=== PATIENT | female | born 1945 | race Caucasian/White ===

== ENCOUNTER 2016-03-27 10:21 | Emergency (ER) | payer MEDICARE, BC ==
[2015-08-22 09:16] VITALS: BMI 23.4
[~2016-03-27 10:21] MED LIST: ALENDRONATE SOD40 MG PO; ASPIRIN 81 MG E81 MG PO; ATENOLOL25 MG PO; BAYER CHEWABLE81 MG PO; EDARBI40 MG PO; HYDROCODONE-APA1 TAB PO; LIPITOR40 MG PO; NEXIUM20 MG PO; PLAVIX75 MG PO; TENORMIN25 MG PO; ULTRAM50 MG PO; VITAMIN D2000 UNIT PO
[2016-03-27 11:11] LABS: APPEARANCE HAZY (CLEAR); COLOR YELLOW (YELLOW); LEUKOCYTE ESTERASE TRACE (NEGATIVE); SPECIFIC GRAVITY 1.015 (1.005-1.020)
[2016-03-27 11:12] LABS: BILIRUBIN NEGATIVE (NEGATIVE); GLUCOSE NEGATIVE (NEGATIVE); KETONE NEGATIVE (NEGATIVE); NITRITE POSITIVE (NEGATIVE); PROTEIN NEGATIVE (NEGATIVE); UROBILINOGEN NORMAL (NORMAL)
[2016-03-27 11:14] LABS: BACTERIA MODERATE /hpf (NONE SEEN); RED CELLS - URINE 0-5 /hpf (0-5)
== END 2016-03-27 11:44 | disposition home or self-care (01) ==
LOC: D.ER 10:21
PROVIDERS: Nurse Practitioner Acute Care
DX: N30.00 Acute cystitis without hematuria (principal); I10 Essential (primary) hypertension; F17.200 Nicotine dependence, unspecified, uncomplicated

== ENCOUNTER 2016-04-12 12:24 | Observation (INO) | payer MEDICARE, BC ==
[~2016-04-12] VITALS: Ht 152.4 cm; Wt 45.9 kg
[2016-04-12 13:23] LABS: BASOPHILS 0.4 % (0.0-2.0); HEMATOCRIT 41.1 % (36.0-48.0); HEMOGLOBIN 14.1 g/dL (12-16); IMMATURE GRANULOCYTES 0.5 % (0-5); LYMPHOCYTES 19.2 % (15-50); MCH 29.6 pg (26.0-34.0); MCHC 34.3 g/dL (31.0-37.0); MCV 86.3 fL (80.0-100.0); MEAN PLATELET VOLUME 9.1 fL (7.4-10.4); MONOCYTES 10.2 % (2-11); NEUTROPHILS 68.7 % (40-80); PLATELET COUNT 333 10x3/uL (130-400); RBC 4.76 10x6/uL (4.00-5.40); RDW 16.2 % (11.5-14.5); WBC 9.3 10x3/uL (4.8-10.8)
[2016-04-12 13:39] LABS: ALBUMIN 3.5 g/dL (3.4-5.0); ALKALINE PHOSPHATASE 74 U/L (46-116); ALT (SGPT) 25 U/L (10-68); BILIRUBIN - TOTAL 0.38 mg/dL (0.2-1.3); CALC OSMOLALITY 277 mosm/kg (275-300); CARBON DIOXIDE 27.4 mmol/L (21.0-32.0); CHLORIDE - SERUM 101 mmol/L (98-107); CREATININE - SERUM 1.2 mg/dL (0.6-1.3); GLUCOSE 85 mg/dL (74-106); POTASSIUM - SERUM 4.1 mmol/L (3.5-5.1); PROTEIN - SERUM 7.4 g/dL (6.4-8.2); SODIUM 136 mmol/L (136-145); UREA NITROGEN 33 mg/dL (7-18); eGFR NON AFRICAN AMERICAN 47 mL/min (90-120)
[2016-04-12 13:45] LABS: AMYLASE - SERUM 111 U/L (25-115); CREATINE KINASE 45 UL (21-215); LIPASE 507 U/L (73-393); PRO BNP 532 pg/mL (0-125); TROPONIN-I < 0.017 ng/mL (0.000-0.060)
--- NOTE | 2016-04-12 15:46 | NUR ---
RECIEVED FROM ER. DENIES ANY CHEST DISCOMFORT. STILL NAUSATED. IV TO LEFT AC TELEMERTY SHOWS SR. WILL MONITOR
[2016-04-12 15:59] VITALS: BP 118/62; Ht 152.4 cm; Wt 45.9 kg
--- NOTE | 2016-04-12 16:22 | NUR ---
ASSESSMENT COMPLETE. PATIENT IS WANTING MORE ZOFRAN FOR NAUSEA. CALLED TO ER AND SPOKE WITH MARYCARMEN WHO SAID THAT SHE GAVE HER A DOSE AT 1319. I EXPLAINED TO THE PATIENT THAT IT WAS EVERY 4 HOURS AND WE CAN GIVE HER SOME MORE AT 520 PM. SHE REPLIED, "WELL SHIT, I MIGHT WELL GO HOME AND TAKE MY OWN ZOFRAN CAUSE I TAKE IT WHEN I NEED IT". I APOLIGIZED AND AGAIN TOLD HER THAT I COULD NOT GIVE IT TO HER AT THIS TIME. SHE REPLIED, " WELL I AM SO SICK AND NO ONE CAN FIND OUT WHY". I ENCOURAGED HER TO STAY SHE WANTED TO LEAVE AND TO GIVE US 24 HOURS TO TRY AND GET HER FEELING BETTER AND MAYBE SOME ANSWERS FOR HER. SHE REPORTS NO GI WORKUP FOR SEVERAL YEARS. WILL CONTINUE TO MONITOR.
--- NOTE | 2016-04-12 17:33 | NUR ---
LYING QUIETLY. C/O BEING NAUSATED WHILE CONTINING TO DRINK HER SHAKE. TELEMERTY SHOWS SR
[2016-04-12 20:51] VITALS: BP 119/62
--- NOTE | 2016-04-12 22:16 | NUR ---
INIITAL ROUNDS COMPLETED AT 1914 HRS. PT DENIED ANY N/V. ASSESSMETN COMPETED AT 1954 HRS. PT REFUSES IV FLUIDS. SR PER CM HR 71. VSS. IV TO LAC SL. LUNGS CTA. HEART TONES S1 S2. PT UP AD MATTIE. REFUSES SCD'S. PT REFUSES 2200 EKG. PT CURRENTLY PLAYING ON PHONE. WILL CONTINUE TO MONITOR. SR UP X2, CALL LIGHT WITHIN REACH.
[2016-04-13 00:30] VITALS: BP 110/55
--- NOTE | 2016-04-13 00:30 | NUR ---
PT RESTING WITH EYES CLOSED. RESP EVEN AND REGULAR. SR UP X2, CALL LIGHT WITHIN REACH.
--- NOTE | 2016-04-13 02:50 | NUR ---
PT RESTING WITH EYES CLOSED. RESP EVEN AND REGULAR. SR UP X2, CALL LIGHT WITHIN REACH.
[2016-04-13 04:30] VITALS: BP 124/61
--- NOTE | 2016-04-13 04:33 | NUR ---
PT RESTING WITH EYES CLOSED. RESP EVEN AND REGULAR. SR UP X2, CALL LIGHT WITHIN REACH.
[2016-04-13 06:02] LABS: ALBUMIN 3.1 g/dL (3.4-5.0); BILIRUBIN - DIRECT 0.09 mg/dL (0.00-0.30); BILIRUBIN - INDIRECT 0.37 mg/dL (0.00-1.00); BILIRUBIN - TOTAL 0.46 mg/dL (0.2-1.3); CALCIUM 8.9 mg/dL (8.5-10.1); CARBON DIOXIDE 27.7 mmol/L (21.0-32.0); CREATININE - SERUM 1.1 mg/dL (0.6-1.3); MAGNESIUM - SERUM 2.1 mg/dL (1.8-2.4); PHOSPHOROUS 3.5 mg/dL (2.5-4.9); PROTEIN - SERUM 6.7 g/dL (6.4-8.2)
[2016-04-13 06:03] LABS: ANION GAP 12.2 mmol/L (8-16); POTASSIUM - SERUM 4.9 mmol/L (3.5-5.1)
--- NOTE | 2016-04-13 06:11 | NUR ---
VSS THROUGHOUT NIGHT. SR PER CM. PT DENIED ANY DISCOMFORT. NEEDS MET; WILL CONTINUE TO MONITOR.
[2016-04-13 08:28] VITALS: BP 148/83
--- NOTE | 2016-04-13 09:20 | NUR ---
ALERT AND ORIENTED X4. DENIES PAIN OR SOB. DEMANDING TELEMETRY TO BE TAKEN OFF. DEMANDING DOCTOR TO BE CALLED FOR DISCHARGE. ENCOURAGE TO STAY UNTIL CT TEST COMPLETE. PATIENT STATES, "I WILL STAY UNTIL TEST IS OVER BUT THEN I WILL CALL THAT ASSHOLE AND GIVE TWO OPTIONS; GET MY PAPERS READY TO LEAVE OR I'M LEAVING ANYWAY." NOTIFY OF PATIENT'S STATEMENT. CONTINUE PLAN OF CARE. BED LOCKED AND LOW. CALL LIGHT IN REACH.
--- NOTE | 2016-04-13 11:00 | NUR ---
ALERT AND ORIENTED X4. RETURN TO ROOM FROM CT. DEMANDING DISCHARGE PAPERS AND IV OUT. CARDIOLOGY SIGN OFF. CT REPORT REQUESTED VERBALLY PER BEFORE OK TO DISCHARGE. CONTINUE PLAN OF CARE. CONTINUE SAFETY PRECAUTIONS.
[2016-04-13] MEDS ORDERED: FLAGYL500 MG PO (11:44)
[2016-04-13] MEDS ORDERED: PROTONIX40 MG PO (11:45)
--- NOTE | 2016-04-13 11:47 | HP ---
PATIENT: ROSINA CONKLIN MEDICAL RECORD: [id number] ACCOUNT: [id number] LOCATION:[address] : 46 ADMISSION DATE: 04/12/16 HISTORY AND PHYSICAL EXAMINATION HISTORY OF PRESENT ILLNESS: A 71-year-old female, who presented to the Emergency Room with 2 weeks of episodic nausea and vomiting, worst tonight, unknown etiology. PAST MEDICAL HISTORY: Significant for nicotine dependence SOCIAL HISTORY: Current everyday smoker, 1 pack per day, smoked since the age of 17. . Denies alcohol. FAMILY HISTORY: Significant for Alzheimer disease, breast cancer. PAST SURGICAL HISTORY: Breast biopsy times 2, multiple heart catheterizations and stent placement, left and right legs, three total. Hysterectomy, cholecystectomy, additional multiple stents in the left leg, chronic back pain, hypertension. CURRENT MEDICATIONS: Albuterol inhaler, Plavix 75 mg daily, edarbi 80 mg daily, Phenergan 25 mg daily tablet p.r.n. nausea, tramadol p.r.n. pain, OTC vitamin D, zolpidem 5 mg q.h.s. p.r.n. insomnia, calcium with vitamin D. ALLERGIES: No known drug allergies. REVIEW OF SYSTEMS: GENERAL: No known change in weight or appetite changes with the above symptoms. HEENT: No cephalgia, visual changes, tinnitus, epistaxis or dysphagia. CARDIOVASCULAR: Denies present chest pain, denies dyspnea on exertion. GASTROINTESTINAL: Denies hematemesis, hematochezia or melena. Reports normal bowel movements. Does admit nausea and vomiting for the past several weeks. GENITOURINARY: Denies dysuria, denies change in frequency. MUSCULOSKELETAL: No acute changes, does have a history of chronic back pain. ENDOCRINE: Denies polyuria, polydipsia, or polyphagia. PHYSICAL EXAMINATION: VITAL SIGNS: Temperature 98.2, blood pressure is 118/62, heart rate 67, respirations 18, O2 sats 97% on room air. HEENT: Normocephalic and atraumatic. Eyes: Pupils are equally round and reactive to light and accommodation. Extraocular muscles are intact. Conjunctivae not injected. Ears: Canals patent. TMs are intact. Nose: Nares patent without drainage. Throat: No erythema, no exudates. HEART: Regular rate and rhythm. No S3 or S4, no rub. LUNGS: Clear to auscultation bilaterally. Breathing is nonlabored. ABDOMEN: Soft, nontender at this time. EXTREMITIES: Present times 4. No edema. NEUROLOGIC: Intact. SKIN: Warm, dry. No rash. LABORATORY DATA: Troponin is less than 0.017 times 3. CBC: White count 9.3, hemoglobin 14.1, hematocrit 41.1, platelets 333. Chemistry shows sodium of 136, potassium 4.1, chloride 101, bicarbonate 27.4, BUN 33, creatinine 1.2. Amylase is normal at 111. Lipase is slightly elevated at 507. HISTORY AND PHYSICAL [id number] ROSINA CONKLIN DIAGNOSTIC DATA: EKG shows normal sinus rhythm with a rate of 65, nonspecific ST changes with some ST elevation in V3, V4, V5. ASSESSMENT AND PLAN: 1. Persistent nausea and vomiting for the past 2 weeks. Elevated lipase. We will monitor, n.p.o. tonight, IV hydration. We will obtain CT abdomen and pelvis with IV and oral contrast. 2. Slightly abnormal EKG. Cardiology following. Cardiac enzymes negative multiple times. 3. Nicotine dependence. Counseled on smoking cessation. We will also provide antiemetics, PPI IV Protonix and supportive care. TRANSINT:[id number] Voice Confirmation ID: [id number] DOCUMENT ID: [id number] OSWALDO LARIOS DO at 1147 CC: [id number] DICTATION DATE: 04/12/162004 PROFILER: 04/12/16 2208 ADM IN [facility] [address] [place] [address]
[2016-04-13 12:42] VITALS: BP 139/79
--- NOTE | 2016-04-13 13:00 | NUR ---
ALERT AND ORIENTED X4. PULLED OUT IV, TIP INTACT. DISCHARGE NURSE PROVIDES DISCHARGE INSTRUCTIONS VERBALLY AND WRITTEN. ESCORT TO RIDE VIA WHEELCHAIR. REMAINS FREE FROM INJURY.
--- NOTE | 2016-04-13 13:15 | DS ---
PATIENT:ROSINA CONKLIN :47 MEDICAL RECORD: [id number] DISCHARGE SUMMARY ADMISSION DATE: 04/12/16 DISCHARGE DATE: A 71-year-old female. DATE OF ADMISSION: 04/12/2016 DATE OF DISCHARGE: 04/13/2016 ADMISSION DIAGNOSES: Nausea and vomiting, epigastric and upper abdominal pain radiating to her chest, cardiovascular disease with stent placements in July 2015, nicotine dependence. DISCHARGE DIAGNOSES: Acute colitis, epigastric and upper abdominal pain, hypertension, nicotine dependence. CONSULTS: Dr. Abdullahi, cardiology. PROCEDURE: CT abdomen showed possible early colitis. HOSPITAL COURSE: The patient was admitted to the ER with reported 2 weeks, nausea and vomiting and epigastric pain. With her cardiac history, EKG was obtained which showed some nonspecific ST changes, some ST elevation in V3, V4. Cardiology, Dr. Abdullahi, evaluated the patient cycled enzymes, which remained negative. None of her previous cardiac symptoms were present. Deemed noncardiac with her abdominal pain and nausea and vomiting. CT with contrast was obtained, showed likely early colitis. The patient is adamant about going home. She was discharged to home in stable and improved condition. She does agree on metronidazole 500 mg p.o. t.i.d. She understands not to drink any alcohol while taking this medicine, was also counseled on smoking cessation. We will follow up with Dr. Zaman in 10 days. She has seen Dr. Muñiz in the past. She will call him for an evaluation as well. She was also started on Protonix 40 mg p.o. daily. The patient is adamant about going home, is discharged in stable condition. TRANSINT:[id number] Voice Confirmation ID: [id number] DOCUMENT ID: [id number] OSWALDO LARIOS DO at 1315 CC: [id number] DICTATION DATE: 04/13/16 1152 GOVERNMENT SERVICES PROFESSIONAL: 04/13/16 1231 ADM IN [facility] [id number] [place] [address]
== END 2016-04-13 14:02 | disposition home or self-care (01) ==
LOC: D.ER 12:24 → D.M2 14:10 → OBSVTIME 14:10 → D.M2 04-13 14:02
PROVIDERS: Family Medicine; ADMIT Family Medicine
DX: K52.9 Noninfective gastroenteritis and colitis, unspecified (principal); I25.10 Atherosclerotic heart disease of native coronary artery without angina pectoris; Z95.5 Presence of coronary angioplasty implant and graft; I10 Essential (primary) hypertension; F17.200 Nicotine dependence, unspecified, uncomplicated

== ENCOUNTER → 2016-05-07 14:24 | Outpatient (CLI) | payer MEDICARE, BC ==
[2016-04-12 15:59] VITALS: BMI 21.5
[~2016-05-07 14:24] MED LIST changes: +FLAGYL500 MG PO; +PROTONIX40 MG PO; +TENORMIN50 MG PO
== END | disposition home or self-care (01) ==
LOC: D.CT 14:24
DX: I65.29 Occlusion and stenosis of unspecified carotid artery (principal)

== ENCOUNTER 2016-05-11 14:41 | Observation (INO) | payer MEDICARE, BC ==
[~2016-05-11] VITALS: Ht 152.4 cm; Wt 49.2 kg
[~2016-05-11 14:41] MED LIST changes: -TENORMIN50 MG PO
[2016-05-11 15:43] LABS: BASOPHILS 0.2 % (0.0-2.0); EOSINOPHILS 0 % (0-7); HEMATOCRIT 39.1 % (36.0-48.0); HEMOGLOBIN 13.1 g/dL (12-16); IMMATURE GRANULOCYTES 0.4 % (0-5); LYMPHOCYTES 5.4 % (15-50); MCHC 33.5 g/dL (31.0-37.0); MCV 89.5 fL (80.0-100.0); MEAN PLATELET VOLUME 8.9 fL (7.4-10.4); MONOCYTES 4.4 % (2-11); NEUTROPHILS 89.6 % (40-80); RBC 4.37 10x6/uL (4.00-5.40); RDW 15.8 % (11.5-14.5)
[2016-05-11 15:49] LABS: PLATELET COUNT 258 10x3/uL (130-400)
[2016-05-11 15:54] LABS: APTT 30.5 SECONDS (22.8-39.4); INR 0.99 (0.85-1.17)
[2016-05-11 16:24] LABS: ALBUMIN 3.5 g/dL (3.4-5.0); ALKALINE PHOSPHATASE 74 U/L (46-116); ALT (SGPT) 22 U/L (10-68); BILIRUBIN - TOTAL 0.44 mg/dL (0.2-1.3); CALC OSMOLALITY 272 mosm/kg (275-300); CALCIUM 8.7 mg/dL (8.5-10.1); CARBON DIOXIDE 25.5 mmol/L (21.0-32.0); CHLORIDE - SERUM 99 mmol/L (98-107); CREATININE - SERUM 1.4 mg/dL (0.6-1.3); GLUCOSE 115 mg/dL (74-106); PROTEIN - SERUM 7.3 g/dL (6.4-8.2); SODIUM 135 mmol/L (136-145); UREA NITROGEN 19 mg/dL (7-18); eGFR NON AFRICAN AMERICAN 39 mL/min (90-120)
[2016-05-11 16:36] LABS: APPEARANCE CLEAR (CLEAR); BILIRUBIN NEGATIVE (NEGATIVE); COLOR YELLOW (YELLOW); GLUCOSE NEGATIVE (NEGATIVE); KETONE NEGATIVE (NEGATIVE); LEUKOCYTE ESTERASE NEGATIVE (NEGATIVE); NITRITE NEGATIVE (NEGATIVE); PROTEIN NEGATIVE (NEGATIVE); SPECIFIC GRAVITY 1.015 (1.005-1.020); UROBILINOGEN NORMAL (NORMAL)
[2016-05-11 16:38] LABS: CKMB 0.5 U/L (0.0-3.6); CREATINE KINASE 47 UL (21-215)
[2016-05-11 16:40] LABS: TROPONIN-I < 0.017 ng/mL (0.000-0.060)
[2016-05-11 20:10] LABS: UDS - AMPHET NEGATIVE QUAL (NEGATIVE); UDS - BARB NEGATIVE QUAL (NEGATIVE); UDS - BENZO POSITIVE QUAL (NEGATIVE); UDS - COCAINE NEGATIVE QUAL (NEGATIVE); UDS - METH NEGATIVE QUAL (NEGATIVE); UDS - OPIATE NEGATIVE QUAL (NEGATIVE); UDS - PCP NEGATIVE QUAL (NEGATIVE); UDS - THC NEGATIVE QUAL (NEGATIVE)
[2016-05-11 22:30] VITALS: BP 96/43; Ht 152.4 cm; Wt 49.2 kg
[2016-05-11] MEDS ORDERED: ULTRAM50 MG PO (22:50)
[2016-05-11] MEDS ORDERED: TENORMIN50 MG PO (22:51)
--- NOTE | 2016-05-12 00:45 | NUR ---
PT ARRIVED VIA STRETCHER FROM ER AT 2137 HRS. NO DISTRESS NOTED.INTRODUCED SELF AT 2150 HRS AND STATED WILL BE IN SHORTLY. MANAGER OF PHARMACY IN TO DO VS. IN PT'S ROOM AT 2225 HRS. PT UPSET STATING THIS NURSE TOOK TOO LONG AND SHE COULD HAVE . STATED THAT IF I WAS NOT IN ROOM BY 2300 SHE WAS GOING TO LEAVE. PT UPSET THAT SHE WAITIED IN ER FOR 2 1/2 HRS AFTER TESTS DONE, THAT SHE HAS IV'S X3 AND GENERALLY HOW BAD SHE WAS TREATED AT THIS FACILITY. Yoel THOMAS RN HS HERE AND PT STATED SAME THING TO HER. ATTEMPTED TO APOLOGIZE WITHOUT SUCCESS. NS AT 100CC/HR STARTED AT THAT TIME TO LAC IV. ADMISSION ASSESSMENT, HISTORY AND HOME MED LIST COMPLETED BY 2300 HRS. IV X3 NOTED. #22 TO RAC, #20 X2 TO LAC. IV TO RAC DC'S WITH CATHETER INTACT PER PT'S INSISTANCE. OTHER IV TO LAC AREA SL AND RESECURED WITH PAPER TAPE. BP ON ARRIVAL 96/43. RETOOK BP AT 2320 HRS WITH RESULTS 127/67. AT 0010 HRS PT ASKING FOR ZOFRAN, COUGHMEDICINE, TYLENOL AND ULTRAM. EXPALINED NEEDED TO GO [facility]SE [facility] ER MD COVERING. PT UPSET CAN'T GET ARIELLE. CALLED AT 0035 STATING SHE COULD BEFORE MEDS ARRIVED. INFORMED HAVE SPOKEN TO INDUSTRIAL WORKERS. MEDS PULLED AT 0056 HRS. WILL COUNTINUE TO MONITOR. SR UP X2, CALL LIGHT WITHIN REACH.
--- NOTE | 2016-05-12 02:24 | NUR ---
PT ARGUING WITH DAUGHTER. STATES JANELLE IRELAND ONLY WORKED FOR 15 MINUTES. STATES JIMENEZ NOW 06/09. BP 109/43. WILL CONTINUE TO MONITOR.
[2016-05-12 03:49] VITALS: BP 109/42
--- NOTE | 2016-05-12 04:16 | NUR ---
PT REQUESTING COUGH MED. INFORMED NOT DUE UNTIL 0500. PT STAES OK, NOT MUCH TO WAIT BUT IT BETTER BE HERE AT 5 AM. WILL CONTINUE TO MONITOR.
--- NOTE | 2016-05-12 06:54 | NUR ---
AM MEDS GIVEN INCLUDING JANELLE IRELAND. PT COMPLAINING ABOUT HOW THE MED WAS DUE AT 500 BUT DID NOT GET UNTIL 0615. PT STATES SHE HAS HAD HORRIBLE CARE SINCE ARRIVING IN ER. VSS. WILL CONTINUE TO MONITOR.
[2016-05-12 08:17] VITALS: BP 142/79
--- NOTE | 2016-05-12 09:00 | NUR ---
ALERT AND ORIENTED X4. SITTING UP IN BED DEMANDING TO BE DISCHARGED OR WILL LEAVE AMA. GILL BOX TENDER ATTEMPT TO CONVINCE PATIENT TO STAY. AGREE TO STAY 10 MINS.
--- NOTE | 2016-05-12 09:30 | NUR ---
ALERT AND ORIENTED X4. PULLED OUT IV. TIP INTACT. DEMAND AMA PAPERS. SIGN AMA PAPERS ON CHART. LEFT FLOOR.
--- NOTE | 2016-05-12 10:19 | NUR ---
NOTIFIED LORENA WORKMAN APN OF PATIENT WANTING TO BE DISCHARGED. WENT TO SPEAK WITH PATIENT PER LORENA'S REQUEST. PATIENT DOES NOT WANT TO WAIT FOR LORENA NOR DR. CHOUDHARY TO VISIT PATIENT. PATIENT WANTS TO GO HOME. EXPLAINED TO PATIENT ABOUT PHYSICIAN WILL HAVE TO SEE PATIENT FIRST. PATIENT DOES NOT WANT TO WAIT. EXPLAINED AMA AND RISKS TO PATIENT. PATIENT WILL ACCEPT RISKS. PATIENT SIGNED AMA PAPERS. STUDENT TO DC IV.
[2016-05-18 16:07] LABS: AEROBE ID Final report (())
--- NOTE | 2016-06-26 15:50 | DS ---
PATIENT:ROSINA CONKLIN :47 MEDICAL RECORD: [id number] DISCHARGE SUMMARY ADMISSION DATE: 05/11/16 DISCHARGE DATE: 05/12/16 Short Stay Summary She was admitted 05/11/2016 through the Emergency Room. This patient was admitted to the Emergency Room with hypotension. She left the hospital against medical advice before being seen by the physician. She was not seen by Dr. Choudhary. This short stay discharge summary. The patient left AMA was not seen. Greater than 30 minutes was spent on this dictation. TRANSINT:[id number] Voice Confirmation ID: [id number] DOCUMENT ID: [id number] Dictated By: LORENA HURTADO RN I have interviewed/examined the above patient and agree with these documented findings. DORIE CHOUDHARY DO at 1012 at 1550 CC: [id number] DICTATION DATE: 06/25/16 1621 BRIM POUNCING MACHINE OPERATOR: 06/26/16 1158 DIS IN 05/12/16 [facility] [address] [place] [address]
== END 2016-05-12 10:00 | disposition left against medical advice (07) ==
LOC: D.ER 14:41 → D.M2 20:17 → OBSVTIME 20:17 → D.M2 05-12 10:00
PROVIDERS: Family Medicine; Physician Assistant; ADMIT Family Medicine Adult Medicine
DX: R11.2 Nausea with vomiting, unspecified (principal); I25.10 Atherosclerotic heart disease of native coronary artery without angina pectoris; Z95.5 Presence of coronary angioplasty implant and graft; I73.9 Peripheral vascular disease, unspecified; I10 Essential (primary) hypertension; E78.5 Hyperlipidemia, unspecified; Z72.0 Tobacco use

== ENCOUNTER → 2016-12-30 13:57 | Outpatient (CLI) | payer MEDICARE, BC ==
[2016-05-11 22:30] VITALS: BMI 21.1
[~2016-12-30 13:57] MED LIST changes: +TENORMIN50 MG PO
== END | disposition home or self-care (01) ==
LOC: D.US 13:57
DX: I65.23 Occlusion and stenosis of bilateral carotid arteries (principal)

== ENCOUNTER → 2017-02-27 13:04 | Outpatient (CLI) | payer MEDICARE, BC ==
[2016-05-11 22:30] VITALS: BMI 21.1
== END | disposition home or self-care (01) ==
LOC: D.CT 13:04
DX: R91.1 Solitary pulmonary nodule (principal)

== ENCOUNTER → 2017-04-03 13:53 | Outpatient (CLI) | payer MEDICARE, BC ==
[2016-05-11 22:30] VITALS: BMI 21.1
== END | disposition home or self-care (01) ==
LOC: D.CT 13:53
DX: I73.9 Peripheral vascular disease, unspecified (principal)

== ENCOUNTER 2017-06-19 09:34 | Outpatient (CLI) | payer MEDICARE, BC ==
[~2017-06-19] VITALS: Ht 152.4 cm; Wt 45.4 kg
--- NOTE | ~2017-06-19 | HEMODYNAMI ---
PATIENT:ROSINA CONKLIN MEDICAL RECORD: [id number] : 47 LOCATION:[facility] ADMISSION DATE: 06/19/17 Generatedon:06/19/201713:23 Patient name: ROSINA CONKLNI Patient #: [id number] SSN: : Date of study: 06/19/2017 Page: Of Hemodynamic Procedure Report Patient Data Patient Demographics Procedure consent was obtained First Name: ROSINA Gender: Female Last Name: KATERIN : 1945 [facility] Initial: GURPREET Age: 72 year(s) Patient #: [id number] Race: Additional ID: [id number] Contact details Address: [address] [place] [address] State: [place] City: [place] Zip code: [address] Past Medical History Allergies: No known allergies Admission Admission Data Admission Date: 06/19/2017 Admission Time: 9:34 Procedure Procedure Types Cath Procedure Peripheral Cath Diagnostic Procedure Abd/Extremity Extremities Procedure Description Procedure Date Procedure Date: 06/19/2017 Procedure Start Time: 12:12 Procedure Staff Name Function Roger Coleman RT Monitor Tripp Davison MD Performing Physician Vanna Valdes RT Scrub Maria Dolores Gillespie RN Nurse Florence Salgado RN Nurse Shivam Zaman MD Additional personnel Hemodynamics Rest Heart Rate: 77 (bpm) Snapshots Pre Cath Intra NCS Post Cath Vital Signs Time Heart Resp etCO2 NIBP (mmHg) Rhythm Pain Sedation Rate (ipm) (mmHg) Status Level (bpm) 13:02:04 66 18 0 Measuring NSR 0 (11) 10(A) , No pain 13:02:30 72 27 0 199/112(149) NSR 0 (11) 10(A) , No pain 13:07:29 96 20 17.4 Measuring NSR 0 (11) 10(A) , No pain 13:07:33 96 17 24.3 No Cuff NSR 0 (11) 10(A) , No pain 13:11:21 0 No Cuff NSR 0 (11) 10(A) , No pain 13:15:20 0 No Cuff NSR 0 (11) 10(A) , No pain 13:19:20 0 No Cuff NSR 0 (11) 10(A) , No pain Procedure Log Time Note 12:42:04 Use device set IR Diagnostic 12:54:39 Maria Dolores Gillespie RN sent for patient. Start room use. 12:55:00 Time tracking: Regular hours (M-F 7:00 - 5:00) 12:55:07 Plan of Care:Hemodynamics will remain stable., Cardiac rhythm will remain stable., Comfort level will be maintained., Respiratory function will remain adequate., Patient/ family verbilizes understanding of procedure., Procedure tolerated without complication., Recovers from procedure without complications.. 12:55:14 Patient received from Outpatients to IR Alert and oriented. Tansferred to table in Supine position. 12:55:16 Correct patient and procedure confirmed by team. 12:55:16 Warm blankets applied, and jana hugger turned on for patient comfort. 12:55:17 ECG and BP/O2 sat monitors applied to patient. 12:55:19 Signed procedure consent form obtained from patient. 12:55:21 - 12:55:36 SEE ANESTHESIA NOTE FOR PRE PROCEDURE TIVA 12:55:41 - 12:55:44 Full Disclosure recording started 12:55:50 Sterile Angiographic Pack opened to sterile field. 12:56:03 Alarms reviewed by Zoraida Guillen 12:56:07 Bilateral groins area was prepped with chlora-prep and draped in steril e fashion 13:00:15 Vital chart was started 13:01:44 Baseline sample Acquired. 13:14:27 PT ON TABLE AND REFUSED PROCEDURE AND PT REMOVED 13:15:44 Patient transfered to Outpatients with Stretcher. 13:15:48 End room use (Document Last) 13:23:19 Vital chart was stopped Device Usage Item Name Manufacture Quantity Catalog Hospital Part Current Minimal Lot# / Number Charge Number Stock Stock Serial# Code Sterile Cardinal 1 [id number] Angiographic Health Pack Signature Audit [place] Stage Time Signature Unsigned Intra-Procedure 06/19/2017 Vanna 1:23:16 PM Keisha MARTINEZ (Deonte) (CV) Signatures Monitor : Roger Signature : Virginia RT Date : Time : [facility] [address] [place] [address]
[2017-06-19 10:47] LABS: BASOPHILS 0.7 % (0-2); EOSINOPHILS 4.4 % (0-7); HEMOGLOBIN 14.2 g/dL (12-16); IMMATURE GRANULOCYTES 0.2 % (0-5); LYMPHOCYTES 22.1 % (15-50); MCH 30.1 pg (26.0-34.0); MCHC 33.8 g/dL (31.0-37.0); MONOCYTES 8.5 % (2-11); NEUTROPHILS 64.1 % (40-80); PLATELET COUNT 286 10x3/uL (130-400); RBC 4.72 10x6/uL (4.00-5.40); RDW 14.6 % (11.5-14.5); WBC 4.6 10x3/uL (4.8-10.8)
[2017-06-19 10:57] LABS: INR 0.98 (0.85-1.17); PROTIME 12.6 SECONDS (11.6-15.0)
[2017-06-19 10:58] LABS: APTT 28.9 SECONDS (22.8-39.4)
[2017-06-19 11:01] LABS: ANION GAP 12.5 mmol/L (8-16); CALCIUM 9.1 mg/dL (8.5-10.1); CARBON DIOXIDE 24.8 mmol/L (21.0-32.0); CREATININE - SERUM 1.1 mg/dL (0.6-1.3); POTASSIUM - SERUM 4.3 mmol/L (3.5-5.1)
[2017-06-19] MEDS ORDERED: TYLENOL #4 W/CO1 TAB PO (11:30)
[2017-06-19 11:43] VITALS: BP 118/63; Ht 152.4 cm; Wt 45.4 kg
[2017-06-19] MEDS ORDERED: COZAAR100 MG PO (11:57)
== END 2017-06-19 11:45 | disposition home or self-care (01) ==
LOC: D.SP 09:34 → D.RAD 12:00
PROVIDERS: General Practice
DX: I74.3 Embolism and thrombosis of arteries of the lower extremities (principal); Z01.810 Encounter for preprocedural cardiovascular examination; Z01.811 Encounter for preprocedural respiratory examination; Z01.812 Encounter for preprocedural laboratory examination; Z53.9 Procedure and treatment not carried out, unspecified reason

== ENCOUNTER 2017-07-08 09:33 | Observation (INO) | payer MEDICARE, BC ==
[~2017-07-08] VITALS: Ht 152.4 cm; Wt 45.5 kg
[2017-07-08] VITALS (19 sets, daily range): BP systolic 128–199; BP diastolic 58–118; BMI 19.5
--- NOTE | ~2017-07-08 | HEMODYNAMI ---
PATIENT:ROSINA CONKLIN MEDICAL RECORD: [id number] : 47 LOCATION:[facility] ADMISSION DATE: 07/08/17 Generatedon:07/08/201715:11 Patient name: ROSINA CONKLIN Patient #: [id number] SSN: : Date of study: 07/08/2017 Page: Of Hemodynamic Procedure Report Patient Data Patient Demographics Procedure consent was obtained First Name: ROSINA Gender: Female Last Name: KATERIN : 1945 [facility] Initial: GURPREET Age: 72 year(s) Patient #: [id number] Race: Additional ID: [id number] Contact details [address]: [address] [place] [address] State: [place] City: [place] Zip code: [address] Past Medical History Allergies: No known allergies Admission Admission Data Admission Date: 07/08/2017 Admission Time: 9:33 Procedure Procedure Types Cath Procedure Peripheral Cath Diagnostic Procedure Cath Peripheral Abd/Extremity Extremities Bilat Lower Extremity Procedure Description Procedure Date Procedure Date: 07/08/2017 Procedure Start Time: 13:07 Procedure Staff Name Function Xiomara Carrera RT Site Worker Xiomara Carrera RT Monitor Roger Coleman RT Scrub Janeen Mao [employer]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 5000 units Hemodynamics Rest Pre Cath Intra NCS Post Cath Vital Signs Time Heart Resp SPO2 etCO2 NIBP (mmHg) Rhythm Pain Sedation Rate (ipm) (%) (mmHg) Status Level (bpm) 12:53:12 66 0 26.2 134/78(130) NSR 0 (11) 10(A) , No pain 12:57:20 78 21 100 26.2 120/83(93) NSR 0 (11) 10(A) , No pain 13:01:24 67 20 100 28.5 107/76(90) NSR 0 (11) 10(A) , No pain 13:05:23 64 21 100 24 102/74(83) NSR 0 (11) 10(A) , No pain 13:09:23 66 17 100 30 93/69(79) NSR 0 (11) 8(A) , No pain 13:13:21 64 17 100 30 94/64(72) NSR 0 (11) 8(A) , No pain 13:17:14 65 18 100 29.2 105/76(87) NSR 0 (11) 8(A) , No pain 13:21:14 70 17 99 30 97/69(83) NSR 0 (11) 8(A) , No pain 13:25:14 70 16 99 31.5 95/66(79) NSR 0 (11) 8(A) , No pain 13:29:13 69 15 99 31.5 92/60(69) NSR 0 (11) 8(A) , No pain 13:33:11 69 16 99 35.2 95/63(78) NSR 0 (11) 8(A) , No pain 13:37:10 71 17 99 32.2 77/58(68) NSR 0 (11) 8(A) , No pain 13:41:47 68 15 99 38.2 115/77(92) NSR 0 (11) 8(A) , No pain 13:45:49 67 14 99 39 117/75(89) NSR 0 (11) 8(A) , No pain 13:50:48 69 15 99 39 Measuring NSR 0 (11) 8(A) , No pain 13:52:10 70 15 99 39.7 Time NSR 0 (11) 8(A) Exceeded , No pain 13:56:01 69 15 100 34.5 Time NSR 0 (11) 8(A) Exceeded , No pain 13:57:37 69 15 100 34.5 No Cuff NSR 0 (11) 8(A) , No pain 14:00:23 70 14 98 38.2 106/58(65) NSR 0 (11) 8(A) , No pain 14:04:17 73 4 1.5 124/92(106) NSR 0 (11) 8(A) , No pain 14:08:25 73 25 28.5 118/65(85) NSR 0 (11) 8(A) , No pain 14:13:24 75 19 99 20.9 Measuring NSR 0 (11) 8(A) , No pain 14:13:30 75 20 98 21.7 123/67(96) NSR 0 (11) 8(A) , No pain 14:17:32 81 9 96 26.2 128/83(93) NSR 0 (11) 8(A) , No pain 14:21:39 83 29 86 19.4 136/75(90) NSR 0 (11) 8(A) , No pain 14:26:38 84 18 99 11.2 Measuring NSR 0 (11) 8(A) , No pain 14:26:42 85 18 98 10.4 171/118(149) NSR 0 (11) 8(A) , No pain Medications Time Medication Route Dose Verified Delivered Reason Notes Effec tiveness by by 13:09:34 Heparin Flush added 3 Tripp Tripp Per Bag to bags Laney Davison MD protocol (1000units/500ml field NS) 13:09:48 Lidocaine 1% added 20ml Tripp Almaguer Per to vial Laney Davison MD protocol field 13:10:14 Oxygen etCO2 10 Tripp Florence Per Nasal l/min Damian Davison RN protocol cannula 13:44:14 Heparin Bolus I.V. 5000 Tripp Henriquez Per units Damian Davison RN protocol Procedure Log Time Note 11:53:32 Use device set IR Diagnostic 12:30:49 Angiodynamics Omniflush 5Fr 65cm ([id number]) opened to sterile field. 12:30:51 Tegaderm 4 x 4 (1626W) opened to sterile field. 12:30:52 Sterile Angiographic Pack opened to sterile field. 12:30:53 Bag Decanter () opened to sterile field. 12:30:54 ACIST Manifold (81826) opened to sterile field. 12:30:55 ACIST Hand Control (85920) opened to sterile field. 12:30:56 ACIST Syringe (59965) opened to sterile field. 12:30:58 TUBING Contrast Injection High Pressure ([id number]) opened to sterile field. 12:30:59 SHEATH 5FR [place] (ZKE066) opened to sterile field. 12:31:00 SHEATH 5FR [place] (KHS796) opened to sterile field. 12:31:02 Micropuncture VSI 4FR kit opened to sterile field. 12:31:09 - 12:38:02 Time tracking: Regular hours (M-F 7:00 - 5:00) 12:38:28 Plan of Care:Hemodynamics will remain stable., Cardiac rhythm will remain stable., Comfort level will be maintained., Respiratory function will remain adequate., Patient/ family verbilizes understanding of procedure., Procedure tolerated without complication., Recovers from procedure without complications.. 12:38:36 Patient received from Outpatients to IR Alert and oriented. Tansferred to table in Supine position. 12:38:47 Warm blankets applied, and jana hugger turned on for patient comfort. 12:38:52 Signed procedure consent form obtained from patient. 12:39:02 H&P Date Dictated: 07/08/2017 Within 30 days and on chart.. 12:39:05 Pre-procedure instructions explained to patient. 12:39:06 Pre-op teaching completed and patient verbalized understanding. 12:39:08 Family in waiting room. 12:39:12 Patient NPO since Midnight. 12:39:25 Patient allergic to No known allergies 12:39:30 Is the patient allergic to Iodine/contrast media? No. 12:39:46 Is patient on blood thinner?Yes 12:39:52 ACC The patient was administered the following blood thiners within the last 24 hours: ACCAspirin, ACCPlavix 12:40:05 Patient diabetic? No. 12:40:10 - 12:40:19 ----Pre-sedation anethsthesia assessment.----see anesthesia notes for monitoring of patient and pre assessment answers. 12:41:15 - 12:41:16 - 12:42:42 Pre procedure: left dorsailis pedis pulse 1+ Palpable, but thready & weak; easily obliterated 12:42:48 Pre procedure: right dorsailis pedis pulse Doppler 12:42:55 Pre procedure: right posterior tibial pulse Doppler 12:43:03 Pre procedure: left posterior tibial pulse Doppler 12:43:24 IV patent on arrival in right hand with D5/.45%NaCl at [facility]. 12:43:34 Left groin area was prepped with chlora-prep and draped in sterile fashion 12:43:39 - 12:51:56 ECG and BP/O2 sat monitors applied to patient. 12:51:59 Vital chart was started 12:52:50 Full Disclosure recording started 12:52:53 - 13:06:31 Physician arrived 13:07:30 Final Timeout: patient, procedure, and site verified with staff and physician. All members of the team are in agreement. 13:07:30 --------ALL STOP TIME OUT------ 13:07:38 Procedure started. 13:07:45 Local anesthetic to left femerol artery with Lidocaine 1% by Tripp Davison MD.INITIAL ACCESS ONLY 13:09:34 Heparin Flush Bag (1000units/500ml NS) 3 bags added to field was administered by Tripp Davison MD; Per protocol; 13:09:48 Lidocaine 1% 20ml vial added to field was administered by Tripp Davison MD; Per protocol; 13:10:14 Oxygen 10 l/min etCO2 Nasal cannula was administered by Florence jorgensen RN; Per protocol; 13:10:45 Arterial access obtained using ultrasound guidance. 13:15:45 GLIDE CATHETER 5FR ANGLED 65cm (CG507) opened to sterile field. 13:16:55 GLIDE WIRE ANGLE 180cm (TI5423) opened to sterile field. 13:17:08 TORQUE DEVICE PLASTIC .038 ( TD01) opened to sterile field. 13:42:47 ST[address] 260 wire (Y24995) opened to sterile field. 13:43:34 INFLATOR BasixTOUCH (TG8448) opened to sterile field. 13:44:14 Heparin Bolus 5000 units I.V. was administered by Florence Salgado RN; Per protocol; 13:45:55 Inflate balloon Inflation number: 1 A IN.PACT Admiral 4 x 40 x 130 DCB Balloon ([id number]) was prepped and advanced across the Undefined1, then inflated 13:46:44 Inflate balloon Inflation number: 2 A [place] 3 x 4 x 135 Balloon ([id number]) was prepped and advanced across the Undefined1, then inflated to 0 RYAN for 0:00 (min:sec). 13:56:43 CXI Catheter 90cm (L76321) opened to sterile field. 13:57:08 COPILOT Valve Control (8781736) opened to sterile field. 13:59:34 CHOICE PT Floppy Straight 300cm guide wire ([id number]) opened to sterile field. 14:09:34 Procedure ended.(Physican Out) 14:09:54 Contrast amount:Isovue 300 138ml. 14:10:00 Fluoroscopy time 00.00 minutes. 14:10:10 Fluoroscopy dose: 148 mGy 14:10:10 Flurop Dose total: 148 14:10:18 Procedure and supply charges have been captured, reviewed, submitted an d are correct. 14:28:30 End room use (Document Last) 14:28:57 Vital chart was stopped 14:29:03 Full Disclosure recording stopped Intervention Summary Intervention Notes Time ActionType Lesion and Equipment Used Action# Pressure Duration Attributes 13:45:55 Inflate Undefined1 IN.PACT Admiral 1 0 00:00 balloon 4 x 40 x 130 DCB Balloon ([id number]) 13:46:44 Inflate Undefined1 [place] 3 x 4 2 0 00:00 balloon x 135 Balloon ([id number]) Device Usage Item Name Manufacture Quantity Catalog Number Hospital Part Current Minimal Lot# / Charge Number Stock Stock Serial# Code Angiodynamics Angiodynamics 1 [id number] 238360 644936 002313 5 Omniflush 5Fr 65cm (43123784) Tegaderm 4 x 4 3M 1 1626W 439417 583523 244425 5 (1626W) Sterile Cardinal 1 [id number] 381900 484593 5 Angiographic Health Pack Bag Decanter Microtek 1 2001S 970621 18801 784604 5 (2001S) Medical Inc. ACIST Manifold Acist Medical 1 39196 092314 157398 868938 5 (45726) Systems Inc ACIST Hand Acist Medical 1 03878 466044 628403 646918 5 Control (54928) Systems Inc ACIST Syringe Acist Medical 1 37865 789199 299335 994544 20 (78218) Systems Inc TUBING Contrast Merit Medical 1 [id number] 798758 984079 713256 5 Injection High Pressure ([id number]) SHEATH 5FR Terumo 2 MLS984 850346 069860 324670 40 [place] (RZA236) Micropuncture VSI VASCULAR 1 7266V 037408 632984 5 VSI 4FR kit SOLUTIONS GLIDE CATHETER Terumo 1 CG507 857763 988970 5 5FR ANGLED 65cm (CG507) GLIDE WIRE Terumo 1 PU3319 830927 629675 330527 5 ANGLE 180cm (LG7227) TORQUE DEVICE [place] 1 TD01 020277 369623 038777 5 PLASTIC .038 ( Scientific TD01) STREET 260 wire Cook Medical 1 U53593 621109 572794 5 9510265 (P29153) INFLATOR [facility] 1 LO6250 616757 703027 232585 5 BasixTOUCH (OW1582) IN.PACT Admiral Medtronic 1 [id number] 046968 216097 793475 5 [id number] 4 x 40 x 130 DCB Balloon ([id number]) [place] 3 x 4 Medtronic 1 [id number] 285791 304543 631393 5 [id number] x 135 Balloon ([id number]) CXI Catheter [facility] 1 N06658 564586 365335 036588 5 3824480 90cm (G79125) COPILOT Valve Cho 1 5863573 044771 092583 565850 5 Control Vascular (8187340) CHOICE PT [place] 1 [id number] 237261 352566 054239 5 Floppy Straight Scientific 300cm guide wire ([id number]) Signature Audit [place] Stage Time Signature Unsigned Intra-Procedure 07/08/2017 Xiomara Carrera RT(R) 2:28:53 PM RT(R) 07/08/2017 3:09:07 PM Intra-Procedure 07/08/2017 Xiomara Carrera 3:11:01 PM RT(R) Signatures Monitor : Xiomara Carrera RT Signature : Date : Time : [facility] [address] [place] [address]
[~2017-07-08 09:33] MED LIST changes: +COZAAR100 MG PO; +TYLENOL #4 W/CO1 TAB PO
[2017-07-08 10:09] LABS: BASOPHILS 1.2 % (0-2); HEMATOCRIT 42.7 % (36.0-48.0); HEMOGLOBIN 14.4 g/dL (12-16); IMMATURE GRANULOCYTES 0.2 % (0-5); MCH 29.8 pg (26.0-34.0); MCHC 33.7 g/dL (31.0-37.0); MCV 88.4 fL (80.0-100.0); MEAN PLATELET VOLUME 8.8 fL (7.4-10.4); MONOCYTES 9.1 % (2-11); NEUTROPHILS 59.5 % (40-80); PLATELET COUNT 310 10x3/uL (130-400); RBC 4.83 10x6/uL (4.00-5.40); RDW 14.4 % (11.5-14.5)
[2017-07-08 10:23] LABS: INR 0.97 (0.85-1.17); PROTIME 12.5 SECONDS (11.6-15.0)
[2017-07-08 10:28] LABS: ANION GAP 12.4 mmol/L (8-16); CALCIUM 9.1 mg/dL (8.5-10.1); CARBON DIOXIDE 26.4 mmol/L (21.0-32.0); CREATININE - SERUM 1.1 mg/dL (0.6-1.3); POTASSIUM - SERUM 3.8 mmol/L (3.5-5.1)
[2017-07-08 18:12] LABS: HEMATOCRIT 37.8 % (36.0-48.0); HEMOGLOBIN 12.5 g/dL (12-16)
[2017-07-08 20:05] LABS: HEMATOCRIT 38.5 % (36.0-48.0)
[2017-07-09] VITALS (8 sets, daily range): BP systolic 134–170; BP diastolic 71–89; Ht 152.4 cm; Wt 45.5 kg
[2017-07-09 07:39] LABS: BASOPHILS 0.3 % (0-2); EOSINOPHILS 0.3 % (0-7); HEMATOCRIT 37.3 % (36.0-48.0); HEMOGLOBIN 12.3 g/dL (12-16); IMMATURE GRANULOCYTES 0.3 % (0-5); LYMPHOCYTES 14.5 % (15-50); MCH 29.7 pg (26.0-34.0); MCV 90.1 fL (80.0-100.0); MEAN PLATELET VOLUME 8.8 fL (7.4-10.4); MONOCYTES 5.2 % (2-11); NEUTROPHILS 79.4 % (40-80); PLATELET COUNT 229 10x3/uL (130-400); RBC 4.14 10x6/uL (4.00-5.40); WBC 7.5 10x3/uL (4.8-10.8)
[2017-07-09 08:10] LABS: ALBUMIN 3.2 g/dL (3.4-5.0); ANION GAP 12.5 mmol/L (8-16); BILIRUBIN - TOTAL 0.35 mg/dL (0.2-1.3); CALCIUM 8.8 mg/dL (8.5-10.1); CARBON DIOXIDE 23.5 mmol/L (21.0-32.0); PROTEIN - SERUM 6.8 g/dL (6.4-8.2)
== END 2017-07-09 11:28 | disposition home or self-care (01) ==
LOC: OBSVTIME → D.SP 09:33 → D.ICU 09:33 → D.SP 12:00 → D.RAD 12:00 → D.SP 15:37 → OBSVTIME 15:37 → D.ICU 15:37 → D.SP 16:22 → D.ICU 16:22 → D.SP 16:40 → OBSVTIME 16:40 → D.ICU 16:40
PROVIDERS: General Practice
DX: I70.201 Unspecified atherosclerosis of native arteries of extremities, right leg (principal); D62 Acute posthemorrhagic anemia; T82.856A Stenosis of peripheral vascular stent, initial encounter; F17.200 Nicotine dependence, unspecified, uncomplicated; I10 Essential (primary) hypertension; E78.5 Hyperlipidemia, unspecified; J44.9 Chronic obstructive pulmonary disease, unspecified; S70.12XA Contusion of left thigh, initial encounter

== ENCOUNTER → 2017-08-24 13:21 | Outpatient (CLI) | payer MEDICARE, BC ==
[2017-07-09 09:43] VITALS: BMI 19.5
== END | disposition home or self-care (01) ==
LOC: D.MRI 13:21
DX: M54.5 Low back pain (principal)

== ENCOUNTER 2017-10-26 19:12 | Emergency (ER) | payer MEDICARE, BC ==
[~2017-10-26] VITALS: Ht 152.4 cm; Wt 44.5 kg
[2017-10-26 19:25] VITALS: BP 176/93; Ht 152.4 cm; Wt 44.5 kg
== END 2017-10-26 20:01 | disposition left against medical advice (07) ==
LOC: D.ER 19:12
DX: R07.9 Chest pain, unspecified (principal); I10 Essential (primary) hypertension; F17.200 Nicotine dependence, unspecified, uncomplicated

== ENCOUNTER → 2018-04-20 18:23 | Outpatient (CLI) | payer MEDICARE ==
[2017-10-26 19:25] VITALS: BMI 19.1
== END | disposition home or self-care (01) ==
LOC: D.MAMMO 14:45
DX: Z12.31 Encounter for screening mammogram for malignant neoplasm of breast (principal)

== ENCOUNTER → 2018-09-21 13:38 | Outpatient (CLI) | payer MEDICARE ==
[2017-10-26 19:25] VITALS: BMI 19.1
== END | disposition home or self-care (01) ==
LOC: D.US 09:30
PROVIDERS: ATTEND Internal Medicine Cardiovascular Disease
DX: I70.1 Atherosclerosis of renal artery (principal)

== ENCOUNTER → 2018-10-06 10:50 | Outpatient (CLI) | payer MEDICARE ==
[2017-10-26 19:25] VITALS: BMI 19.1
== END | disposition home or self-care (01) ==
LOC: D.CT 09:00
PROVIDERS: ATTEND Internal Medicine Cardiovascular Disease
DX: I70.211 Atherosclerosis of native arteries of extremities with intermittent claudication, right leg (principal)

== ENCOUNTER 2019-03-17 15:46 | Emergency (ER) | payer SELFPAY ==
[~2019-03-17] VITALS: Ht 152.4 cm; Wt 45.5 kg
[2019-03-17 15:54] VITALS: Ht 152.4 cm; Wt 45.5 kg
[2019-03-17 18:30] VITALS: BP 142/70
== END 2019-03-17 18:30 | disposition left against medical advice (07) ==
LOC: D.ER 15:46
DX: R10.9 Unspecified abdominal pain (principal); I10 Essential (primary) hypertension; Z72.0 Tobacco use; Z53.29 Procedure and treatment not carried out because of patient's decision for other reasons

== ENCOUNTER 2019-03-18 11:51 | Observation (INO) | payer MEDICARE ==
[~2019-03-18] VITALS: Ht 152.4 cm; Wt 45.4 kg
[2019-03-18 12:21] LABS: BASOPHILS 0.3 % (0-2); EOSINOPHILS 1.8 % (0-7); HEMATOCRIT 43.4 % (36.0-48.0); IMMATURE GRANULOCYTES 0.9 % (0-5); LYMPHOCYTES 13.7 % (15-50); MCH 31.9 pg (26.0-34.0); MCHC 34.6 g/dL (31.0-37.0); MCV 92.3 fL (80.0-100.0); MEAN PLATELET VOLUME 8.7 fL (7.4-10.4); MONOCYTES 7.9 % (2-11); NEUTROPHILS 75.4 % (40-80); WBC 7.7 10x3/uL (4.8-10.8)
[2019-03-18 12:24] LABS: ANION GAP 10.8 mmol/L (8-16); CALCIUM 8.8 mg/dL (8.5-10.1); CARBON DIOXIDE 30.2 mmol/L (21.0-32.0); CREATININE - SERUM 1.1 mg/dL (0.6-1.3)
[2019-03-18 12:25] LABS: PLATELET COUNT 306 10x3/uL (130-400)
[2019-03-18 12:30] LABS: ALBUMIN 3.4 g/dL (3.4-5.0); BILIRUBIN - TOTAL 0.65 mg/dL (0.2-1.3); PROTEIN - SERUM 7.3 g/dL (6.4-8.2)
[2019-03-18 12:52] LABS: INR 0.82 (0.85-1.17); PROTIME 11.3 SECONDS (11.6-15.0)
[2019-03-18 13:05] LABS: AMYLASE - SERUM 60 U/L (25-115); LIPASE 179 U/L (73-393)
[2019-03-18 13:10] LABS: APPEARANCE CLEAR (CLEAR); BACTERIA FEW /hpf (NEGATIVE); BILIRUBIN NEGATIVE (NEGATIVE); COLOR STRAW (YELLOW); EPITHELIAL CELLS RARE /hpf (0-5); GLUCOSE NEGATIVE (NEGATIVE); KETONE NEGATIVE (NEGATIVE); NITRITE NEGATIVE (NEGATIVE); PROTEIN NEGATIVE (NEGATIVE); RED CELLS - URINE RARE /hpf (0-5); SPECIFIC GRAVITY 1.005 (1.005-1.020); UROBILINOGEN NORMAL (NORMAL); WHITE CELLS - URINE NSEEN /hpf (NEGATIVE)
[2019-03-18 14:32] LABS: CKMB 1.1 U/L (0.0-3.6); MAGNESIUM - SERUM 2.2 mg/dL (1.8-2.4); PRO BNP 1921 pg/mL (0-125); TROPONIN-I < 0.017 ng/mL (0.000-0.060)
[2019-03-18 17:20] VITALS: BP 123/68
[2019-03-18 17:43] LABS: CKMB 1.3 U/L (0.0-3.6); CREATINE KINASE 61 UL (21-215); TROPONIN-I < 0.017 ng/mL (0.000-0.060)
[2019-03-18 19:06] VITALS: BP 136/74
--- NOTE | 2019-03-18 20:05 | NUR ---
I have reviewed this patient and I concur with the Shift Assessment completed by the Licensed Practical Nurse today this shift.
--- NOTE | 2019-03-18 21:04 | NUR ---
PATIENT C/O OF N/V. EMESIS BAG GIVE, ZOFRAN ADMINISTERED PER ORDERS.
[2019-03-19] VITALS: BP 120/80
[2019-03-19 00:54] LABS: CKMB 1.7 U/L (0.0-3.6); CREATINE KINASE 60 UL (21-215)
[2019-03-19 00:55] LABS: TROPONIN-I < 0.017 ng/mL (0.000-0.060)
--- NOTE | 2019-03-19 02:50 | NUR ---
PT TO ROOM 2102 VIA STRETCHER @ 2049. PATIENT TRANSFERED TO BED INDEPENDENTLY. NO S/S OF DISTRESS OBSERVED, RR EVEN AND UNLABORED ON ROOM AIR. VSS. PATIENT C/O OF NAUSEA. PIV TO RT FA, NICK, SABA C/D/I. QUICK START, MED REC, ADULT HX, SRS COMPLETED.
[2019-03-19 02:53] VITALS: BP 194/85; BMI 19.5
[2019-03-19 04:00] VITALS: BP 166/87
[2019-03-19 05:28] LABS: BASOPHILS 0 % (0-2); EOSINOPHILS 0 % (0-7); HEMOGLOBIN 14.8 g/dL (12-16); IMMATURE GRANULOCYTES 0.4 % (0-5); LYMPHOCYTES 10.2 % (15-50); MCH 31.4 pg (26.0-34.0); MCHC 34.4 g/dL (31.0-37.0); MCV 91.1 fL (80.0-100.0); MEAN PLATELET VOLUME 8.8 fL (7.4-10.4); MONOCYTES 2.3 % (2-11); NEUTROPHILS 87.1 % (40-80); PLATELET COUNT 307 10x3/uL (130-400); RBC 4.72 10x6/uL (4.00-5.40)
[2019-03-19 05:30] LABS: WBC 5.7 10x3/uL (4.8-10.8)
[2019-03-19 06:06] LABS: CALCIUM 8.6 mg/dL (8.5-10.1); CARBON DIOXIDE 24.6 mmol/L (21.0-32.0); CHLORIDE - SERUM 100 mmol/L (98-107); CKMB 1.3 U/L (0.0-3.6); CREATINE KINASE 66 UL (21-215); CREATININE - SERUM 0.9 mg/dL (0.6-1.3); POTASSIUM - SERUM 4.1 mmol/L (3.5-5.1); SODIUM 135 mmol/L (136-145); UREA NITROGEN 16 mg/dL (7-18); eGFR NON AFRICAN AMERICAN 65 mL/min (90-120)
[2019-03-19 06:09] LABS: CALC OSMOLALITY 273 mosm/kg (275-300); GLUCOSE 161 mg/dL (74-106); TROPONIN-I < 0.017 ng/mL (0.000-0.060)
--- NOTE | 2019-03-19 08:06 | NUR ---
PATIENTS DAUGHTER CALLED AND HAD A LENGTHY CONVERSTATION REGARDING CARES; WHAT HAS BEEN DONE IN ER, WHAT IS BEING DONE ON THE FLOOR, HOW HER MOM IS TODAY,AND ULTIMATELY TRANSFERRED THE CALL INTO THE PATIENT ROOM.
[2019-03-19 08:24] VITALS: BMI 19.5
[2019-03-19 08:54] VITALS: BP 158/94
--- NOTE | 2019-03-19 10:01 | NUR ---
MEDICATED FOR PAIN AT THIS TIME. NO DISTRESS. CALL LIGHT WITHIN REACH. MEDICATED FOR NAUSEA AT THIS TIME.
[2019-03-19 11:53] VITALS: Ht 152.4 cm; Wt 45.4 kg
[2019-03-19 12:00] VITALS: BP 138/93
--- NOTE | 2019-03-19 12:22 | NUR ---
REFUSED CXR AT THIS TIME
[2019-03-19 12:31] LABS: UDS - AMPHET NEGATIVE QUAL (NEGATIVE); UDS - BARB NEGATIVE QUAL (NEGATIVE); UDS - BENZO NEGATIVE QUAL (NEGATIVE); UDS - COCAINE NEGATIVE QUAL (NEGATIVE); UDS - OPIATE POSITIVE QUAL (NEGATIVE); UDS - PCP NEGATIVE QUAL (NEGATIVE); UDS - THC NEGATIVE QUAL (NEGATIVE)
--- NOTE | 2019-03-19 12:34 | NUR ---
PATIENT AMBULATING IN ROOM, DENIES HELP WITH PLACING SUPPOSITORY. CONTINUES TO HAVE EMESIS. CONTINUE TO TRY AND DRINK MAGNESIUM CITRATE. FEMALE FRIEND AT BEDSIDE.
--- NOTE | 2019-03-19 13:16 | NUR ---
INFORMED PATIENT WAITING ON VENANCIO FROM PHARMACY AND SHE STATED SHE DOESN'T WANT IT, SHE DOESN'T NEED IT.
--- NOTE | 2019-03-19 13:42 | NUR ---
PATIENT REQUESTED TO GO HOME. SPOKE WITH CATY RUIZ, AND SHE STATED IF THE PATIENT WANTS TO GO AMA, LET HER GO. THE PATIENT HAS ARGUED WITH EVERYONE ON THIS SHIFT AND LAST SHIFT. PATIENT THINKS THE PROVIDER SHOULD BE HERE RIGHT NOW TO SEE HER. AMA FORM PRINTED. 20 GAUGE IV REMOVED FROM RIGHT FOREARM. CATHETER TIP INTACT. NO BLEEDING FROM SITE. 2X2 GAUGE APPLIED AND SECURED WITH BANDAID. PATIENT IS WAITING FOR HER SON TO COME AND PICK HER UP AT THIS TIME.
--- NOTE | 2019-03-19 14:09 | NUR ---
UNKNOWN EXACT TIME PATIENT LEFT UNIT. PATIENT IS NO LONGER IN ROOM AND ALL PERSONAL BELONGINGS ARE GONE FROM THE ROOM.
== END 2019-03-19 14:15 | disposition left against medical advice (07) ==
LOC: D.ER 11:51 → D.M2 18:28 → OBSVTIME 18:28 → D.M2 03-19 14:15
PROVIDERS: Emergency Medicine; ADMIT Internal Medicine Nephrology; ATTEND Internal Medicine Nephrology
DX: K59.00 Constipation, unspecified (principal); E87.1 Hypo-osmolality and hyponatremia; I10 Essential (primary) hypertension; J44.9 Chronic obstructive pulmonary disease, unspecified; I25.10 Atherosclerotic heart disease of native coronary artery without angina pectoris; I73.9 Peripheral vascular disease, unspecified; F17.203 Nicotine dependence unspecified, with withdrawal